=== PATIENT | female | born 1960 | race Caucasian/White ===

== ENCOUNTER 2017-12-24 16:03 | Inpatient (IN) | payer MEDICAID ==
[~2017-12-24] VITALS: Ht 157.5 cm; Wt 61.0 kg
[2017-12-24 16:57] VITALS: BP 108/68
[2017-12-24] MEDS ORDERED: POTASSIUM CHLORIDE 40 MEQ in SODIUM CHLORIDE 0.45% 1,000 ML IV SCH (17:30)
[2017-12-24] MEDS ORDERED: POTASSIUM CHLORIDE 40 MEQ in SODIUM CHLORIDE 0.9% 500 ML IV ONE ×2 (17:30→20:30)
[2017-12-24] MEDS: HYDROcodone/APAP 5/325 TABLET PO PRN (18:44)
[2017-12-24] MEDS ORDERED: MAGNESIUM SULFATE PMX 4GM/100M 100 ML IVPB ONE (19:00)
[2017-12-24 19:24] VITALS: BP 112/70
[2017-12-24] MEDS ORDERED: CODEINE SULFATE 30 MG TABLET PO PRN (20:30)
[2017-12-24] MEDS: ACETAMINOPHEN 325 MG TABLET PO SCH (20:30)
[2017-12-24] MEDS ORDERED: PSYLLIUM PACKET PO PRN (20:30)
[2017-12-24] MEDS ORDERED: ONDANSETRON 2MG/ML, 2ML IVPush PRN (21:30)
[2017-12-24] MEDS ORDERED: POTASSIUM CHLORIDE 20 MEQ in SODIUM CHLORIDE 0.45% 1,000 ML IV SCH (22:00)
[2017-12-24 22:53] LABS: CULTURE INDICATED? YES; MICROSCOPIC INDICATED
[2017-12-24] MEDS ORDERED: POTASSIUM CHLORIDE 10 MEQ in SODIUM CHLORIDE 0.45% 1,000 ML IV SCH (23:00)
[2017-12-24] MEDS ORDERED: morphine SULFATE 10 MG/ML, 1ML IVPush PRN (23:00)
[2017-12-24] MEDS ORDERED: Lactobacillus PO (23:41)
[2017-12-24] MEDS ORDERED: LEVO100T5 PO (23:41)
[2017-12-24] MEDS ORDERED: IBUP-1222 PO (23:41)
[2017-12-24] MEDS ORDERED: [UNRECOGNIZED DRUG - OTHER] TP (23:41)
[2017-12-24] MEDS ORDERED: OMEP-110 PO (23:41)
[2017-12-24] MEDS ORDERED: FOLI-17 PO (23:41)
[2017-12-24] MEDS ORDERED: LOPE2CAP PO (23:41)
[2017-12-24] MEDS ORDERED: PSYL0.527 PO (23:41)
[2017-12-24] MEDS ORDERED: CODE30TA3 PO (23:41)
[2017-12-24] MEDS ORDERED: ALEN70TA5 PO (23:41)
[2017-12-24] MEDS ORDERED: CLOTRIMAZOLE 1% RC (23:41)
[2017-12-25 00:11] VITALS: BP 100/62
[2017-12-25] MEDS: POTASSIUM CHLORIDE 20 MEQ in SODIUM CHLORIDE 0.45% 1,000 ML IV SCH ×3 (00:35→23:10)
[2017-12-25] MEDS: HYDROCORTISONE CRM 2.5%, 20GM TP PRN ×2 (00:35→20:49)
[2017-12-25] MEDS: ACETAMINOPHEN 325 MG TABLET PO SCH ×4 (02:27→20:30)
[2017-12-25] MEDS: LEVOTHYROXINE 100 MCG TABLET PO SCH (05:42)
[2017-12-25] MEDS: HYDROcodone/APAP 5/325 TABLET PO PRN ×4 (05:47→23:13)
[2017-12-25 05:57] LABS: MEAN CORPUSCULAR HEMOGLOBIN 32.1 pg (27.0-34.8); MEAN CORPUSCULAR HGB CONC 33.3 g/dL (32.4-35.8); MEAN CORPUSCULAR VOLUME 96.3 fL (80-100); MEAN PLATELET VOLUME 6.5 fL (7.4-10.4); PLATELET COUNT 279 x10^3/uL (130-400); RED BLOOD COUNT 2.07 x10^6/uL (3.82-5.3); RED CELL DISTRIBUTION WIDTH 18.2 % (9.6-15.2)
[2017-12-25 06:23] LABS: MD MORPH REVIEW ONLY
[2017-12-25 06:24] LABS: BASOPHILS # (AUTO) 0.01 x10^3/uL (0-0.1); BASOPHILS % (AUTO) 0 % (0-1); EOSINOPHILS # (AUTO) 0.21 x10^3/uL (0-0.4); EOSINOPHILS % (AUTO) 6 % (1-7); LYMPHOCYTES # (AUTO) 0.45 x10^3/uL (1-3.4); LYMPHOCYTES % (AUTO) 13 % (22-44); MONOCYTES # (AUTO) 0.42 x10^3/uL (0.2-0.8); MONOCYTES % (AUTO) 12 % (2-9); NEUTROPHILS # (AUTO) 2.42 x10^3/uL (1.8-6.8); NEUTROPHILS % (AUTO) 69 % (42-75)
[2017-12-25 06:25] LABS: <PLATELET ESTIMATE> ADEQUATE; <PLT MORPHOLOGY> NORMAL PLT MORPH; ANISOCYTOSIS 1+; TEAR DROPS 1+
[2017-12-25 06:49] VITALS: BP 101/62
[2017-12-25 07:04] LABS: ALANINE AMINOTRANSFERASE 10 U/L (12-78); ALBUMIN 2.1 g/dL (3.4-5.0); ANION GAP 10 mmol/L (5-15); CALCIUM 7.4 mg/dL (8.5-10.1); CHLORIDE 109 mmol/L (98-107); CREATININE 0.54 mg/dL (0.55-1.02)
[2017-12-25 07:06] LABS: ALKALINE PHOSPHATASE 50 U/L (45-117); BILIRUBIN,TOTAL 0.3 mg/dL (0.2-1.0); TOTAL IRON BINDING CAPACITY 188 mcg/dL (250-450); TOTAL PROTEIN 6.2 g/dL (6.4-8.2)
[2017-12-25 07:57] LABS: % IRON SATURATION 15 % (20-55); IRON LEVEL 29 mcg/dL (50-170)
[2017-12-25] MEDS: LACTOBACILLUS CHEW TABLET PO SCH ×2 (08:30→20:48)
[2017-12-25] MEDS: FOLIC ACID 1 MG TABLET PO SCH (08:30)
[2017-12-25] MEDS: FERROUS SULFATE 325 MG TABLET PO SCH ×2 (08:30→17:46)
[2017-12-25] MEDS: OMEPRAZOLE 20 MG CAPSULE.DR PO SCH (08:32)
[2017-12-25] MEDS ORDERED: POTASSIUM CHLORIDE 40 MEQ in SODIUM CHLORIDE 0.9% 500 ML IV ONE (11:00)
[2017-12-25 13:39] VITALS: BP 122/66
[2017-12-25] MEDS: IRON SUCROSE COMPLEX 100MG/5ML IV SCH (13:40)
[2017-12-25] MEDS: LOPERAMIDE 2 MG CAPSULE PO PRN ×2 (13:48→20:49)
[2017-12-25 20:44] VITALS: BP 128/75
[2017-12-25] MEDS: CLOTRIMAZOLE CRM 1%, 15GM TP SCH (20:48)
[2017-12-26] MEDS: ACETAMINOPHEN 325 MG TABLET PO SCH ×4 (01:40→20:51)
[2017-12-26] MEDS: LOPERAMIDE 2 MG CAPSULE PO PRN ×3 (02:52→17:47)
[2017-12-26 02:55] VITALS: BP 119/76
[2017-12-26 03:07] LABS: MEAN CORPUSCULAR HEMOGLOBIN 31.4 pg (27.0-34.8); MEAN CORPUSCULAR HGB CONC 32.4 g/dL (32.4-35.8); MEAN CORPUSCULAR VOLUME 96.9 fL (80-100); MEAN PLATELET VOLUME 7.2 fL (7.4-10.4); PLATELET COUNT 329 x10^3/uL (130-400); RED BLOOD COUNT 2.36 x10^6/uL (3.82-5.3); RED CELL DISTRIBUTION WIDTH 18.7 % (9.6-15.2)
[2017-12-26 03:11] LABS: ALANINE AMINOTRANSFERASE 11 U/L (12-78); ALBUMIN 2.3 g/dL (3.4-5.0); ANION GAP 9 mmol/L (5-15); CALCIUM 7.5 mg/dL (8.5-10.1); CHLORIDE 113 mmol/L (98-107); CREATININE 0.57 mg/dL (0.55-1.02)
[2017-12-26 03:13] LABS: ALKALINE PHOSPHATASE 55 U/L (45-117); BILIRUBIN,TOTAL 0.2 mg/dL (0.2-1.0); TOTAL PROTEIN 6.4 g/dL (6.4-8.2)
[2017-12-26 03:40] LABS: BASOPHILS # (AUTO) 0.01 x10^3/uL (0-0.1); BASOPHILS % (AUTO) 0 % (0-1); EOSINOPHILS # (AUTO) 0.29 x10^3/uL (0-0.4); EOSINOPHILS % (AUTO) 7 % (1-7); LYMPHOCYTES # (AUTO) 0.68 x10^3/uL (1-3.4); LYMPHOCYTES % (AUTO) 16 % (22-44); MD SCAN; MONOCYTES # (AUTO) 0.49 x10^3/uL (0.2-0.8); MONOCYTES % (AUTO) 12 % (2-9); NEUTROPHILS # (AUTO) 2.72 x10^3/uL (1.8-6.8); NEUTROPHILS % (AUTO) 65 % (42-75)
[2017-12-26] MEDS: LEVOTHYROXINE 100 MCG TABLET PO SCH (04:50)
[2017-12-26] MEDS: HYDROcodone/APAP 5/325 TABLET PO PRN ×3 (04:58→17:47)
[2017-12-26] MEDS: FERROUS SULFATE 325 MG TABLET PO SCH ×2 (08:57→17:47)
[2017-12-26] MEDS: OMEPRAZOLE 20 MG CAPSULE.DR PO SCH (08:57)
[2017-12-26] MEDS: POTASSIUM CHLORIDE 20 MEQ in SODIUM CHLORIDE 0.45% 1,000 ML IV SCH (08:58)
[2017-12-26 08:59] VITALS: BP 126/75
[2017-12-26] MEDS: IRON SUCROSE COMPLEX 100MG/5ML IV SCH (10:00)
[2017-12-26] MEDS: LACTOBACILLUS CHEW TABLET PO SCH ×2 (10:00→20:50)
[2017-12-26] MEDS ORDERED: MAGNESIUM SULFATE PMX 2GM/50ML 50 ML IVPB ONE (10:00)
[2017-12-26] MEDS: FOLIC ACID 1 MG TABLET PO SCH (10:00)
[2017-12-26] MEDS: CLOTRIMAZOLE CRM 1%, 15GM TP SCH ×2 (10:00→20:52)
[2017-12-26 11:03] LABS: CLOSTRIDIUM DIFFICILE ANTIGEN NEGATIVE; CLOSTRIDIUM DIFFICILE TOXIN NEGATIVE (Negative)
[2017-12-26] MEDS ORDERED: OMNIPAQUE 350 MG/ML, 100ML BOTTLE ONE (11:32)
[2017-12-26] MEDS: CIPROFLOXACIN/PMX 400MG/200ML 200 ML IVPB SCH (11:56)
[2017-12-26 12:51] VITALS: BP 108/67
[2017-12-26 20:58] VITALS: BP 112/68
[2017-12-27] MEDS: HYDROcodone/APAP 5/325 TABLET PO PRN ×4 (00:03→17:46)
[2017-12-27] MEDS: CIPROFLOXACIN/PMX 400MG/200ML 200 ML IVPB SCH ×2 (00:03→12:00)
[2017-12-27] MEDS: LOPERAMIDE 2 MG CAPSULE PO PRN ×4 (00:03→17:46)
[2017-12-27 00:05] VITALS: BP 107/66
[2017-12-27] MEDS: ACETAMINOPHEN 325 MG TABLET PO SCH ×3 (02:42→14:30)
[2017-12-27 04:30] LABS: BASOPHILS # (AUTO) 0.01 x10^3/uL (0-0.1); BASOPHILS % (AUTO) 0 % (0-1); EOSINOPHILS # (AUTO) 0.31 x10^3/uL (0-0.4); EOSINOPHILS % (AUTO) 9 % (1-7); LYMPHOCYTES # (AUTO) 0.48 x10^3/uL (1-3.4); LYMPHOCYTES % (AUTO) 13 % (22-44); MD NO; MEAN CORPUSCULAR HEMOGLOBIN 31.8 pg (27.0-34.8); MEAN CORPUSCULAR HGB CONC 32.8 g/dL (32.4-35.8); MEAN CORPUSCULAR VOLUME 97.1 fL (80-100); MEAN PLATELET VOLUME 7.2 fL (7.4-10.4); MONOCYTES # (AUTO) 0.45 x10^3/uL (0.2-0.8); MONOCYTES % (AUTO) 13 % (2-9); NEUTROPHILS # (AUTO) 2.33 x10^3/uL (1.8-6.8); NEUTROPHILS % (AUTO) 65 % (42-75); PLATELET COUNT 236 x10^3/uL (130-400); RED BLOOD COUNT 2.12 x10^6/uL (3.82-5.3); RED CELL DISTRIBUTION WIDTH 18.2 % (9.6-15.2)
[2017-12-27 04:38] LABS: ANION GAP 9 mmol/L (5-15); CHLORIDE 112 mmol/L (98-107)
[2017-12-27] MEDS: POTASSIUM CHLORIDE 20 MEQ in SODIUM CHLORIDE 0.45% 1,000 ML IV SCH ×2 (06:30→14:00)
[2017-12-27] MEDS: LEVOTHYROXINE 100 MCG TABLET PO SCH (06:30)
[2017-12-27 07:53] VITALS: BP 115/70
[2017-12-27] MEDS: FERROUS SULFATE 325 MG TABLET PO SCH ×2 (07:57→17:00)
[2017-12-27] MEDS: LACTOBACILLUS CHEW TABLET PO SCH (07:57)
[2017-12-27] MEDS: OMEPRAZOLE 20 MG CAPSULE.DR PO SCH (07:57)
[2017-12-27] MEDS: FOLIC ACID 1 MG TABLET PO SCH (07:57)
[2017-12-27] MEDS: IRON SUCROSE COMPLEX 100MG/5ML IV SCH (07:58)
[2017-12-27] MEDS: CLOTRIMAZOLE CRM 1%, 15GM TP SCH (07:58)
[2017-12-27 12:47] VITALS: BP 112/65
[2017-12-27] MEDS ORDERED: ONDANSETRON ODT 4 MG PO PRN (17:00)
[2017-12-28] MEDS ORDERED: CIPROFLOXACIN 500 MG TABLET PO SCH (12:00)
[2017-12-29] MEDS ORDERED: ALENDRONATE 70 MG TABLET PO SCH (06:30)
[2018-01-01] MEDS ORDERED: ALENDRONATE 70 MG TABLET PO SCH (06:30)
== END 2017-12-27 19:05 | disposition home or self-care (01) | DRG 699 ==
LOC: 3NW 16:03
PROVIDERS: ADMIT Specialist; ATTEND Specialist
PROC: 0TJB8ZZ Inspection of Bladder, Via Natural or Artificial Opening Endoscopic (ICD-10-PCS; principal; 2017-12-25)
DX: N32.1 Vesicointestinal fistula (principal); N39.0 Urinary tract infection, site not specified; D58.9 Hereditary hemolytic anemia, unspecified; C56.9 Malignant neoplasm of unspecified ovary; E83.42 Hypomagnesemia; E87.6 Hypokalemia; B96.20 Unspecified Escherichia coli [E. coli] as the cause of diseases classified elsewhere; Z92.21 Personal history of antineoplastic chemotherapy
CPT/HCPCS: 36415; 74178; 74430; 80048; 80053; 81001; 83540; 83550; 83735; 85025; 87077; 87086; 87186; 87324; J0744; J1756; J2405; J3480; Q0162; Q9967; J3475; J7040